=== PATIENT | male | born 1965 | race Hispanic/Latino ===

== ENCOUNTER → 2024-03-07 | Day surgery (SDC) | payer MEDICARE ==
[~2024-03-07] MED LIST: BACLOFEN10 MG PO; LACTATED RINGER'S 1,000 ML ONE; LEVOTHYROXINE50 MCG PO; LINZESS72 MCG PO; LOSARTAN POTASS25 MG PO; MIRALAX17 GM PO; OXCARBAZEPINE150 MG PO; TYSABRI300 MG/15 IV; VENLAFAXINE HCL75 M1 PO; VIT D3 PO
[2024-03-07 12:02] VITALS: TEMP 97.7
[2024-03-07 12:45] VITALS: BP 123/75; PULSE 87; RESP 17; O2SAT 99
== END | disposition home or self-care (01) ==
LOC: OR 08:00
PROVIDERS: ATTEND Internal Medicine Gastroenterology
DX: Z12.11 Encounter for screening for malignant neoplasm of colon (principal); Z71.3 Dietary counseling and surveillance; K64.8 Other hemorrhoids; Z78.9 Other specified health status; G35 Multiple sclerosis; E78.5 Hyperlipidemia, unspecified; I10 Essential (primary) hypertension; E03.9 Hypothyroidism, unspecified; F32.A Depression, unspecified; Z01.810 Encounter for preprocedural cardiovascular examination; Z79.899 Other long term (current) drug therapy; Z68.27 Body mass index [BMI] 27.0-27.9, adult
CPT/HCPCS: 93005; G0121; J7121; 45378